=== PATIENT | male | born 2005 | race Caucasian/White ===

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

== ENCOUNTER 2025-01-22 17:00 | Observation (INO) | payer OTHER ==
[~2025-01-22] VITALS: Ht 185.4 cm; Wt 69.9 kg
[~2025-01-22 17:00] MED LIST changes: -CETI-24; +CETI-24 PO
[2025-01-22] MEDS ORDERED: ISOVUE-370 76% 100ML VIAL As Ordered ONE (19:31)
[2025-01-22 19:44] LABS: HEMATOCRIT 46.8 % (42.0-52.0); MEAN CORPUSCULAR HEMOGLOBIN 29.7 pg (27.0-33.0); MEAN CORPUSCULAR HGB CONC 34.2 g/dl (32.0-36.5); PLATELET COUNT, AUTOMATED 198 10^3/uL (150-450); RED BLOOD COUNT 5.38 10^6/uL (4.30-6.10); WHITE BLOOD COUNT 12.6 10^3/uL (4.0-10.0)
[2025-01-22 19:52] LABS: ERYTHROCYTE SEDIMENTATION RATE 14 mm/hr (0-15)
[2025-01-22 20:15] LABS: ATYPICAL LYMPH 11 % (0-5); BASOPHILS 2 % (0-1); LYMPHOCYTES 36 % (16-44); MONOCYTES 10 % (0-5); NEUTROPHILS 41 % (28-66)
[2025-01-22 20:16] LABS: PLATELET ESTIMATE NORMAL (NORMAL)
[2025-01-22] MEDS: dexAMETHasone 20MG/5ML VIAL IV ONE (20:35)
[2025-01-22] MEDS: AMPICILLIN SOD/SULBACTAM SOD 3 GM in DEXTROSE 5% (D5W) MINI-BAG PLU 100 ML IV ONE (20:35)
[2025-01-22] MEDS ORDERED: ACETAMINOPHEN 325 MG TAB PO PRN (20:50)
[2025-01-22] MEDS ORDERED: propofoL 200 MG/20 ML VIAL As Ordered ONE (21:16)
[2025-01-22] MEDS ORDERED: LIDOCAINE 2% 100MG/5ML SDV (FOR ANES.) As Ordered ONE (21:16)
[2025-01-22] MEDS ORDERED: dexmedeTOMIDine (4MCG/ML)200MCG/50ML BTL (PRECEDEX) As Ordered ONE (21:17)
[2025-01-22] MEDS ORDERED: ONDANSETRON 4MG 2ML VIAL As Ordered ONE (21:17)
[2025-01-22] MEDS ORDERED: fentaNYL 100 MCG/2 ML INJECTION As Ordered ONE (21:19)
[2025-01-22] MEDS ORDERED: MIDAZOLAM INJ 2MG/2ML VIAL As Ordered ONE (21:19)
[2025-01-22] MEDS ORDERED: OXYMETAZOLINE 0.05% NASAL SPRAY As Ordered ONE (21:30)
[2025-01-22] MEDS: NS (Normal Saline) 0.9% 1,000 ML IV SCH (21:30)
[2025-01-22] MEDS ORDERED: MUCI600T31 PO (22:17)
[2025-01-22] MEDS ORDERED: LIDOCAINE W/EPINEPHRINE 1% 20ML VIAL As Ordered ONE (22:17)
[2025-01-22] MEDS ORDERED: ADVI200T PO (22:17)
[2025-01-22] MEDS ORDERED: HOME MED LIST COMPLETE! XX SCH (22:20)
[2025-01-22] MEDS ORDERED: ACETAMINOPHEN 1000MG/100ML IV BAG As Ordered ONE (22:23)
[2025-01-22] MEDS ORDERED: SUGAMMADEX SODIUM 500 MG/5 ML VIAL (BRIDION) As Ordered ONE (22:24)
[2025-01-22] MEDS ORDERED: ONDANSETRON 4MG 2ML VIAL IV PRN (22:50)
[2025-01-22] MEDS ORDERED: MEPERIDINE 25 MG/ML 1ML VIAL IV PRN (22:50)
[2025-01-22] MEDS ORDERED: diphenhydrAMINE 50MG/ML VIAL IV PRN (22:50)
[2025-01-22] MEDS ORDERED: fentaNYL 100 MCG/2 ML INJECTION IV PRN (22:50)
[2025-01-22] MEDS ORDERED: oxyCODONE 5MG TAB PO PRN (22:50)
[2025-01-22] MEDS: MORPHINE 2 MG/ML 1ML VIAL IV PRN (23:05)
[2025-01-22 23:47] VITALS: BP 155/79; TEMP 97.3; O2SAT 97
[2025-01-23 00:15] VITALS: BP 136/80; TEMP 97.3; O2SAT 95
[2025-01-23 01:07] VITALS: BP 102/60; TEMP 97.2; O2SAT 93
[2025-01-23] MEDS: AMPICILLIN SOD/SULBACTAM SOD 3 GM in DEXTROSE 5% (D5W) MINI-BAG PLU 100 ML IV SCH (02:13)
[2025-01-23 02:15] VITALS: BP 102/60; TEMP 97.3; O2SAT 94
[2025-01-23 03:15] VITALS: BP 111/69; TEMP 97.3; O2SAT 93
[2025-01-23 04:29] VITALS: BP 110/58; TEMP 96.8; O2SAT 94
[2025-01-23] MEDS: MORPHINE 2 MG/ML 1ML VIAL IV PRN (05:27)
[2025-01-23 06:10] LABS: HEMATOCRIT 45.6 % (42.0-52.0); HEMOGLOBIN 15.5 g/dl (13.5-17.5); MEAN CORPUSCULAR HEMOGLOBIN 29.3 pg (27.0-33.0); MEAN CORPUSCULAR VOLUME 86.2 fl (80.0-96.0); PLATELET COUNT, AUTOMATED 192 10^3/uL (150-450); RED BLOOD COUNT 5.29 10^6/uL (4.30-6.10); WHITE BLOOD COUNT 8.4 10^3/uL (4.0-10.0)
[2025-01-23 06:34] LABS: ALBUMIN 3.5 G/DL (3.2-5.2); ALKALINE PHOSPHATASE 189 U/L (40-129); ALT/SGPT 157 U/L (7.0-40); AST/SGOT 60 U/L (<34); BILIRUBIN,TOTAL 0.8 MG/DL (0.3-1.2); BLOOD UREA NITROGEN 13 MG/DL (9-23); CALCIUM LEVEL 8.7 MG/DL (8.5-10.1); CARBON DIOXIDE LEVEL 27 MMOL/L (20-31); CHLORIDE LEVEL 102 MMOL/L (98-107); CREATININE FOR GFR 1.03 MG/DL (0.70-1.30); GLOMERULAR FILTRATION RATE > 90.0 (>60); GLUCOSE, FASTING 131 MG/DL (60-100); POTASSIUM SERUM 5.5 MMOL/L (3.5-5.1); SODIUM LEVEL 136 MMOL/L (136-145); TOTAL PROTEIN 6.9 G/DL (5.7-8.2)
[2025-01-23] MEDS ORDERED: KETOROLAC 30 MG/ML 1ML VIAL IV PRN (07:20)
[2025-01-23 08:32] LABS: HEPATITIS B SURFACE ANTIGEN NEGATIVE (NEGATIVE)
[2025-01-23] MEDS: PATIROMER SORBITEX CALCIUM 8.4 GM POWDER PACKET (VELTASSA) PO ONE (09:27)
[2025-01-23] MEDS: KETOROLAC 30 MG/ML 1ML VIAL IV PRN (09:50)
[2025-01-23 10:09] VITALS: BP 139/76; TEMP 98.4; O2SAT 95
[2025-01-23 12:24] LABS: HEPATITIS C VIRUS ABY INDEX 0.04 INDEX (<0.8)
[2025-01-23 12:25] LABS: HEPATITIS B CORE ANTIBODY IGM NEGATIVE (NEGATIVE)
[2025-01-23] MEDS ORDERED: AMOX875T2 PO (12:48)
[2025-01-23] MEDS ORDERED: HEPARIN SOD (PORCINE) 5000UNITS/ML 1ML VIAL/SYRINGE SC SCH (14:00)
== END 2025-01-23 14:45 | disposition home or self-care (01) ==
LOC: M ED 17:00 → M ED INP 17:01 → M MS5PR 23:42
PROVIDERS: ADMIT Family Medicine; ATTEND Student in an Organized Health Care Education/Training Program
DX: J36 Peritonsillar abscess (principal); R74.01 Elevation of levels of liver transaminase levels; E87.5 Hyperkalemia; R59.0 Localized enlarged lymph nodes; R79.89 Other specified abnormal findings of blood chemistry; R07.0 Pain in throat; Z79.899 Other long term (current) drug therapy
CPT/HCPCS: 36415; 42700; 70491; 80047; 80053; 80074; 84132; 85025; 85027; 85652; 86140; 87040; 87076; 87154; 87880; 93005; 96365; 96375; 96376; 99285; J0131; J0295; J1100; J1885; J2250; J2405; J3010; Q9967

== ENCOUNTER → 2025-01-27 | Outpatient (REF) | payer OTHER ==
[~2025-01-27] MED LIST changes: +ADVI200T PO; +AMOX875T2 PO; +MUCI600T31 PO
== END ==
LOC: M LAB REF 16:58
PROVIDERS: ATTEND Physician Assistant Medical
DX: J36 Peritonsillar abscess (principal)